=== PATIENT | male | born 1985 | race African-American/Black ===

== ENCOUNTER 2024-04-28 21:59 | Emergency (ER) | payer OTHER, SELFPAY ==
[2024-04-28 22:01] VITALS: BP 163/95
[2024-04-28 22:02] VITALS: BP 163/95
[2024-04-28] MEDS: ATIVAN 2 MG IV (22:15)
--- NOTE | 2024-04-28 22:21 | ED.GENMED ---
History of Present Illness
General
Chief Complaint: Hallucinations
Source: patient, ambulance crew and other ([facility] presents staff)
Exam Limitations: altered mental status
Time Seen by Provider: 04/28/24 22:07
Nursing documentation reviewed up to this point in time: agreed with
History of Present Illness
History of Present Illness:
This is a 38-year-old gentleman who arrives via EMS from [facility] for evaluation of agitation, confusion, hallucinations. He apparently recently arrived to the custodial earlier today.
Patient is quite anxious, confused, attempts to cooperate but not able to follow directions. History is significantly limited.
Markedly limited information from [facility] nursing staff other than patient has no known allergies.
It appears he is currently incarcerated on drug possession charges. As well as DUI
I was able to obtain some information from [employer] chart.
Patient has had multiple ED visits over the past several years, most recently 4 separate visits this year. 2 of which patient was picked up by EMS due to wandering, taken to local emergency department [facility] where he was found to
be confused, agitated. There is report of possible history of autism. There is also note of history of methamphetamine abuse and UDS positive for amphetamines.
Most recent ED visit April 12, picked up for wandering and concern for possible alcohol intoxication. Patient was given a dose of Haldol. No laboratory studies performed during that ED visit.
Prior ED visits noted negative EtOH levels.
Past History
Past History
ED Past Medical History: Psychiatric (Autism; methamphetamine abuse)
Social History
Drug: Other (Methamphetamine)
Living: alone
Family History
Family History: Unable to obtain
Phy Exam
Physical Exam
Physical Exam:
GENERAL: This is a 38-year-old gentleman appears his stated age, awake and alert, moderately anxious, mildly agitated, oriented to self only, somewhat stuttering, nonsensical speech. He attempts to cooperate but is not able to follow commands. He
is anxious and agitated but without aggressive tendencies.
EYE: pupils equal and reactive. anicteric
NECK: Supple, nontender, no meningismus, no significant adenopathy.
ENT: posterior pharynx is clear, oral mucosa is moist. TM clear b/l, nares patent.
CARDIAC: Regular rhythm, tachycardic. no murmur.
LUNGS: Clear breath sounds bilaterally, no acute respiratory distress, no wheezes/rales/rhonchi
ABDOMEN: Soft, nondistended, without focal tenderness, no r/g, no cvat. normoactive BS.
NEUROLOGICAL: Awake and alert, oriented x 1, moderately anxious/agitated. Unable to follow commands. Moving all extremities well. No focal neuro deficits.
SKIN: Warm and dry, scant perspiration to brow, normal color, skin intact. No rash.
MUSCULOSKELETAL: No C/C/E. peripheral pulses are full and equal b/l. No palpable tenderness.
PSYCH: Anxious, agitated, confused.
Course
Orders/Labs/Results
Orders:
Orders
04/28/24 22:05
Electrocardiogram (*1) Urgent
Reason for Study: Tachycardia
EKG- Treatment ONCE
04/28/24 22:13
Lorazepam [Ativan] 2 mg .ROUTE .STK-MED ONE
04/28/24 22:14
Lorazepam [Ativan] 2 mg IV NOW STA
04/28/24 22:15
Alcohol Urgent
CMP [Comprehensive Metabolic Panel] Urgent
Complete Blood Count/With Diff Urgent
04/28/24 22:16
Urinalysis Reflex To Culture Urgent
Date Specimen was Collected: 04/29/24
Time Specimen was Collected: 00:28
Urine Drug Abuse Screen Urgent
Date Specimen was Collected: 04/29/24
Time Specimen was Collected: 00:28
04/28/24 22:18
Add On- LAB Urgent
Tests Added?: TSH w reflex to free T-4, ETOH
04/28/24 22:19
CR Chest Portable - 1 View Urgent
Comment:
Reason For Exam: acute agitation, tachycardia
Reason Study Needs to be Portable: Unable to Transport
04/28/24 23:00
0.9% Sodium Chloride 1000 ml [Nss] 1,000 ml Mvi, Adult [Multivitamin] 10 ml Thiamine Injection 100 mg IV 1,000 mls/hr
04/28/24 23:03
Lactic Acid Urgent
TSH Reflex To Free T4 Urgent
Comment: ADD ON
Blood Culture Q30M
VALERIE Source: Blood/Venous
Specimen Description:
Blood Culture Q30M
VALERIE Source: Blood/Venous
Specimen Description:
04/29/24 00:01
CT Head W/o Iv Contrast Urgent
Reason For Exam: acute confusion, hallucinations
04/29/24 00:29
Fentanyl, Urine Urgent
Urine Microscopic Reflex Cult Urgent
Abnormal Lab Results
04/28/24 04/29/24
22:15 00:29
MPV 10.9 H fL
(7.4-10.4)
Glucose 124 H mg/dl
(70-99)
Total Protein 8.3 H g/dl
(6.3-8.2)
Urine Ketones 1+ A
(Negative)
Urine Albumin (Reflex) 2+ A
(Neg - Trace)
Ur Amphetamines Screen Positive H
(Negative)
U Methamphetamines Scrn Positive H
(Negative)
04/28/24 22:15
04/28/24 22:15
Vital Signs
Initial and Last Documented VS:
Initial Vital Signs
Temp Pulse Resp BP Pulse Ox
99 F 128 24 163/95 99
04/28/24 22:01 04/28/24 22:01 04/28/24 22:01 04/28/24 22:01 04/28/24 22:01
Last Documented Vital Signs
Temp Pulse Resp BP Pulse Ox
99 F 109 19 149/95 100
04/28/24 22:01 04/29/24 01:30 04/29/24 01:30 04/29/24 01:00 04/29/24 01:02
MDM/Problems Addressed
Differential Diagnosis Includes:
Concern for acute withdrawal syndrome such as alcohol, opiates, concern for acute amphetamine intoxication, concern for acute exacerbation of autism spectrum disorder, concern for acute psychosis versus exacerbation of underlying psychosis.
Other consideration is acute infectious process, less likely [employer] event/mass lesion etc.
Will initiate IV fluids/banana bag�for potential alcohol use disorder/alcohol withdrawal syndrome. Will give an IV dose of Ativan 2 mg. For potential withdrawal phenomenon as well as for treatment of acute agitation.
Will check labs, UDS, lactic acid, blood cultures and plan for chest x-ray as well as CT of the head.
EKG shows sinus tachycardia, poor R wave progression anteriorly. No old EKGs to compare.
Chronic conditions affecting care: Psychiatric illness and Other (History of methamphetamine abuse.)
*Radiology
Radiology exam reviewed: preliminary read by ED provider (Chest x-ray is unremarkable, clear lung guevara. top normal heart size ) and radiology read reviewed (CT of the head is unremarkable)
*Pulse Oximetry
Patient hypoxic: no
*EKG
Interpreted by ED Provider?: Yes
Interpretation: abnormal
Comparison EKG: no comparison EKG present
Rate: tachycardiac
Rhythm: sinus
[place]: normal axis
Interval: normal interval
QRS Pattern: poor R-wave progression
Ischemia: no ischemia
*Sign Painter Helper Interpretation
Rate: tachycardiac
Interpretation: abnormal
Rhythm: sinus
*Critical Care Note
Total Time (30-74mins, 75-104mins- exclusive of procedures): Not Applicable
Update Note
Update Note:
01:40
After 2 mg IV dose of Ativan and some IV fluids patient has no further agitation, he is awake and alert, easily conversant.
He admits to methamphetamine abuse. Denies alcohol use nor other recreational drug use.
CT of the head is unremarkable. Other laboratory studies are within normal limits.
UDS is positive for methamphetamine/amphetamines. EtOH is negative.
At this point patient is medically stable for discharge back to custodial.
I have spoken with the nurse at the custodial, discussed the case and recommend benzodiazepine treatment/taper.
ED Attending Note
-
Portions of this chart may have been created with voice recognition software.� Occasional wrong word or��sound alike� substitutions may have occurred due to the inherent limitations of voice recognition software.
Discharge Plan
Departure
Patient Disposition: Correction
Date of Disposition: 04/29/24
Time of Disposition: 01:54
Patient with high blood pressure during this ER visit?: Yes
Condition: Good
Discharge Problem:
Acute delirium, Methamphetamine abuse, Medical clearance for incarceration
Referrals:
[facility] [Family Provider] -
Interventions
Interventions:
*Risk Screen - Suicide Last Done: 04/28/24 22:01
*General Assessment Last Done: 04/28/24 22:01
*Neglect/Abuse Screening Last Done: 04/28/24 22:01
*ED- Fall Risk Assessment Last Done: 04/28/24 23:36
*ED COVID-19 Vaccine History Last Done: 04/28/24 22:01
ED-Suicide Risk Assessment Last Done: 04/28/24 22:02
ED- Neurological Assessment Last Done: 04/28/24 22:02
ED-Psychological Assessment Last Done: 04/28/24 22:02
ED Swallowing Screen Last Done: 04/28/24 23:31
Discharge Date and Time
Print Language: ARMENIAN
[2024-04-28] MEDS: MULTIVITAMIN 1011 MG IV (23:11)
[2024-04-28] MEDS: MULTIVITAMIN 1011 ML IV (23:11)
[2024-04-28 23:15] LABS: % Basophils 0.7 % (0-2); % Eosinophils 0.3 % (0-6); % Immature Granulocytes 0.2 % (0-0.5); % Lymphocytes 27.9 % (20.5-51.1); % Neutrophils 64.9 % (42.2-75.2); Absolute Lymphocytes 1.7 10^3/uL (1.2-3.4); Absolute Monocytes 0.4 10^3/uL (0.1-0.6); Absolute Neutrophils 3.9 10^3/uL (1.4-6.5); Hematocrit 42.9 % (39.0-52.0); Hemoglobin 14.6 g/dL (13.0-18.0); Mean Corpuscular Hgb 28.1 pg (27.0-31.0); Mean Corpuscular Volume 82.7 fL (80.0-94.0); Mean Platelet Volume 10.9 fL (7.4-10.4); Nucleated Red Blood Cells % 0 % (-); Platelet Count 258 10^3/uL (130-400); Red Blood Cell Count 5.19 10^6/uL (4.70-6.10); Red Cell Dist. Width 14.3 % (11.5-14.5)
[2024-04-28 23:33] LABS: ALT (SGPT) 33 U/L (0-50); AST (SGOT) 37 U/L (17-59); Albumin 4.7 g/dl (3.5-5.0); Alkaline Phosphatase 92 U/L (38-126); Blood Urea Nitrogen 12 mg/dl (9-20); Calcium 10.1 mg/dl (8.4-10.2); Carbon Dioxide 24 mmol/L (22-30); Chloride 107 mmol/L (98-107); Estimated Creatinine Clearance > 125 ml/min; Glucose 124 mg/dl (70-99); Potassium 4.1 mmol/L (3.5-5.1); Sodium 144 mmol/L (135-145); Total Bilirubin 0.6 mg/dl (0.2-1.3); Total Protein 8.3 g/dl (6.3-8.2); eGFR > 60.00
[2024-04-28 23:33] LABS: Lactic Acid 1.2 mmol/L (0.7-2.0)
[2024-04-28 23:34] LABS: Alcohol None Detected
[2024-04-29 00:03] LABS: TSH Reflex To Free T4 0.66 uIU/ml (0.47-4.68)
[2024-04-29 00:41] LABS: Urine Albumin 2+ (Neg - Trace); Urine Bilirubin Negative (Negative); Urine Character Clear (Clear); Urine Color Yellow; Urine Glucose Negative (Negative); Urine Ketone 1+ (Negative); Urine Leukocyte Negative (Negative); Urine Nitrite Negative (Negative); Urine Occult Blood Negative (Negative); Urine Urobilinogen Negative (Neg - 1+)
[2024-04-29 00:52] LABS: Amphetamines Positive (Negative); Barbiturates Negative (Negative); Benzodiazepines Negative (Negative); Buprenorphine Negative (Negative); Cocaine Negative (Negative); Marijuana Negative (Negative); Methadone Negative (Negative); Methamphetamines Positive (Negative); Opiates Negative (Negative); Phencyclidine Negative (Negative); Tricyclic Antidepressants Negative (Negative)
[2024-04-29 01:00] VITALS: BP 149/95
[2024-04-29 01:06] LABS: Fentanyl, Urine Negative (Negative)
[2024-04-29 01:51] LABS: Urine Mucus Many
[2024-04-29 01:52] LABS: Urine Amorphous Seen; Urine Bacteria Moderate (Negative); Urine Granular Cast 0-2 /LPF (0); Urine Red Blood Cell 0-2 /HPF (0-2)
[2024-04-29 01:54] LABS: Urine Squamous Cell 21-25 /LPF (Few)
[2024-04-29 03:00] VITALS: BP 140/93
== END 2024-04-29 03:16 ==
LOC: EMR 21:59
PROVIDERS: EMERGENCY PHYSICIAN Emergency Medicine
DX: R41.0 Disorientation, unspecified (principal); F15.10 Other stimulant abuse, uncomplicated; F84.0 Autistic disorder; Z02.89 Encounter for other administrative examinations
CPT/HCPCS: 96365; 96375; 99285; 70450; 71045; 80053; 80306; 80307; 81003; 81015; 82077; 83605; 84443; 85025; 87040; 87086; 93005